=== PATIENT | female | born 1970 | race African-American/Black ===

== ENCOUNTER 2017-02-16 09:14 | Emergency (ER) | payer SELFPAY ==
[2017-02-16] MEDS ORDERED: Ibuprofen 200 MG TAB ONE (09:42)
--- NOTE | 2017-02-16 10:34 | RAD ---
SACRUM AND COCCYX THREE VIEWS: History: Fell on tailbone. Comparison: Lumbar spine examination, 02-27-13. FINDINGS: There is left sided deviation of the lower coccygeal segment, however, this was present on the previ ous lumbar exam. There is a lucency which is reproduced on two of the films in the distal coccyx jus t above the sacral segment. It could represent overlying bowel but could represent a nondisplaced fr acture. SI joints are symmetric. I do not appreciate any sacral fracture. IMPRESSION: Questionable nondisplaced fracture of the coccyx. I am not entirely certain that this not related to overlying stool. The deviation to the lower coccygeal segment was present on a previous 2013 study. POS: [facility]
== END 2017-02-16 10:22 | disposition home or self-care (01) ==
LOC: NAV ERS 09:14
DX: S32.2XXA Fracture of coccyx, initial encounter for closed fracture (principal); I10 Essential (primary) hypertension; F17.210 Nicotine dependence, cigarettes, uncomplicated; W01.0XXA Fall on same level from slipping, tripping and stumbling without subsequent striking against object, initial encounter
CPT/HCPCS: 72220

== ENCOUNTER 2018-05-04 12:20 | Emergency (ER) | payer SELFPAY | END 2018-05-04 12:43 | disposition home or self-care (01) | LOC: NAV ERS 12:20 | DX: K02.9 Dental caries, unspecified (principal); I10 Essential (primary) hypertension; F17.210 Nicotine dependence, cigarettes, uncomplicated | CPT/HCPCS: 99282 ==

== ENCOUNTER 2019-09-17 07:57 | Emergency (ER) | payer SELFPAY | END 2019-09-17 09:03 | disposition home or self-care (01) | LOC: NAV ERS 07:57 | DX: M25.552 Pain in left hip (principal); G89.29 Other chronic pain; F17.210 Nicotine dependence, cigarettes, uncomplicated; I10 Essential (primary) hypertension | CPT/HCPCS: 99281 ==

== ENCOUNTER 2023-07-25 15:46 | Outpatient (CLI) | payer OTHER | END 2023-07-25 15:47 | disposition home or self-care (01) | LOC: NAV RAD 15:46 | PROVIDERS: ATTEND Family Medicine | DX: M25.561 Pain in right knee (principal); M25.461 Effusion, right knee; M17.11 Unilateral primary osteoarthritis, right knee ==